=== PATIENT | female | born 1955 | race Caucasian/White ===

== ENCOUNTER → 2016-06-29 | Outpatient (CLI) | payer OTHER ==
[~2016-06-29] MED LIST: ALPR2TAB2 PO; B-12 PO; FLAXSEED OIL PO; HYDR-3144 PO; HYDROCODONE PO; LEVO300T2 PO; ZOLP10TA PO; [UNRECOGNIZED DRUG - OTHER] PO
[2016-06-29 09:41] LABS: HEMOGLOBIN 14.2 g/dL (11.7-16.4)
[2016-06-29 09:48] LABS: BLOOD UREA NITROGEN 11 mg/dL (7-18)
== END | disposition home or self-care (01) ==
LOC: STAR 08:15
PROVIDERS: ATTEND Neurological Surgery
DX: Z01.818 Encounter for other preprocedural examination (principal)
CPT/HCPCS: 36415; 71020; 80048; 81003; 85025; 85610; 85730; 93005

== ENCOUNTER 2016-07-05 08:07 | Inpatient (IN) | payer OTHER ==
[2016-06-29 08:41] VITALS: BP 147/83
[~2016-07-05] VITALS: Ht 172.7 cm; Wt 92.0 kg
[2016-07-05] MEDS ORDERED: BUPIVACAINE/PF 0.5% ONE (08:14)
[2016-07-05] MEDS ORDERED: THROMBIN 5,000 UNIT VIAL TP ONE ×2 (08:14→10:30)
[2016-07-05] MEDS ORDERED: BUPIVACAINE/PF-EPI 0.5% 1:200K ONE (08:14)
[2016-07-05] MEDS ORDERED: VANCOMYCIN 1,000 MG ONE (08:14)
[2016-07-05] MEDS ORDERED: BACITRACIN 50,000 UNIT ONE (08:15)
[2016-07-05] MEDS ORDERED: LACTATED RINGERS 1,000 ML IV SCH (08:37)
[2016-07-05] MEDS ORDERED: LIDOCAINE 1%, 2ML SQ PRN (09:00)
[2016-07-05] MEDS ORDERED: MIDAZOLAM 1 MG/ML, 2ML ONE (09:45)
[2016-07-05] MEDS ORDERED: FENTANYL PF 250 MCG/5ML ONE (09:45)
[2016-07-05] MEDS ORDERED: REMIFENTANIL 2 MG ONE ×2 (09:45→12:07)
[2016-07-05] MEDS ORDERED: PHENYLEPHRINE 10 MG/ML ONE (10:03)
[2016-07-05] MEDS ORDERED: CEFAZOLIN 1,000 MG ONE ×2 (10:03)
[2016-07-05] MEDS ORDERED: GLYCOPYRROLATE 0.2MG/1ML ONE (10:03)
[2016-07-05] MEDS ORDERED: SUCCINYLCHOLINE 20 MG/ML, 10ML ONE (10:03)
[2016-07-05] MEDS ORDERED: METOCLOPRAMIDE 5 MG/ML, 2ML ONE (10:03)
[2016-07-05] MEDS ORDERED: DEXAMETHASONE 4 MG/ML, 1ML ONE (10:03)
[2016-07-05] MEDS ORDERED: ONDANSETRON 2MG/ML, 2ML ONE (10:03)
[2016-07-05] MEDS ORDERED: PROPOFOL 10 MG/ML, 20ML ONE (10:03)
[2016-07-05] MEDS ORDERED: PROPOFOL 10 MG/ML, 50ML ONE (10:03)
[2016-07-05] MEDS ORDERED: VANCOMYCIN 1,000 MG IM ONE (10:30)
[2016-07-05] MEDS ORDERED: BUPIVACAINE/PF 0.5% INFIL ONE (10:30)
[2016-07-05] MEDS ORDERED: BUPIVACAINE/PF-EPI 0.5% 1:200K INFIL ONE (10:30)
[2016-07-05] MEDS ORDERED: BACITRACIN 50,000 UNIT IRRIG ONE (10:30)
[2016-07-05] MEDS ORDERED: MEPERIDINE/PF 25MG/0.5ML IVPush PRN (12:00)
[2016-07-05] MEDS ORDERED: OXYcodone 5 MG/5 ML ORAL.SOL UDC PO PRN (12:00)
[2016-07-05] MEDS ORDERED: LABETALOL 5MG/ML, 20ML IV PRN (12:00)
[2016-07-05] MEDS ORDERED: ONDANSETRON 2MG/ML, 2ML IVPush PRN (12:00)
[2016-07-05] MEDS ORDERED: HYDROmorphone 1 MG/ML, 1ML IV PRN (12:00)
[2016-07-05] MEDS ORDERED: ACETAMINOPHEN 325 MG TABLET PO PRN (12:00)
[2016-07-05] MEDS ORDERED: MIDAZOLAM 1 MG/ML, 2ML IV PRN (12:00)
[2016-07-05] MEDS ORDERED: PROMETHAZINE 25 MG/ML, 1ML IV PRN (12:00)
[2016-07-05] MEDS ORDERED: hydrALAzine 20 MG/ML, 1ML IV PRN (12:00)
[2016-07-05] MEDS ORDERED: HYDROmorphone 2 MG/ML, 1ML ONE (13:32)
[2016-07-05] MEDS: FENTANYL PF 100 MCG/2ML IV PRN ×2 (15:04→15:31)
[2016-07-05] MEDS ORDERED: BISACODYL 10 MG SUPP PR PRN (18:00)
[2016-07-05] MEDS ORDERED: METHOCARBAMOL 750 MG TABLET PO PRN (18:00)
[2016-07-05] MEDS ORDERED: OXYcodone/APAP 10/325MG TABLET PO PRN (18:00)
[2016-07-05] MEDS ORDERED: DIPHENHYDRAMINE 50 MG/ML, 1ML IM PRN (18:00)
[2016-07-05] MEDS ORDERED: HYDROcodone/APAP 5/325 TABLET PO PRN (18:00)
[2016-07-05] MEDS ORDERED: DIPHENHYDRAMINE 50 MG CAPSULE PO PRN (18:00)
[2016-07-05] MEDS ORDERED: PROMETHAZINE 25 MG/ML, 1ML IM PRN (18:00)
[2016-07-05] MEDS ORDERED: ONDANSETRON 2MG/ML, 2ML IV PRN (18:00)
[2016-07-05] MEDS ORDERED: MAGNESIUM HYDROXIDE 8%, 30ML UDC PO PRN (18:00)
[2016-07-05] MEDS ORDERED: MORPHINE SULFATE 4 MG/ML, 1ML ONE (18:23)
[2016-07-05] MEDS: D5%-0.9% NACL+KCL 20MEQ 1,000 ML IV SCH (18:26)
[2016-07-05] MEDS: CEFAZOLIN PMX 1GM/50ML 50 ML IVPB SCH (18:26)
[2016-07-05] MEDS: morphine SULFATE 10 MG/ML, 1ML IV PRN ×2 (18:27→20:29)
[2016-07-05] MEDS ORDERED: ALPRAZOLAM MC SCH (18:30)
[2016-07-05] MEDS ORDERED: DOXYCYCLINE 100MG TABLET PO PRN (18:30)
[2016-07-05] MEDS ORDERED: ZOLPIDEM MC SCH (18:30)
[2016-07-05 19:45] VITALS: BP 146/76
[2016-07-05] MEDS ORDERED: ALPRazolam 1MG TABLET PO PRN (21:00)
[2016-07-05] MEDS: HYDROcodone/APAP 10/325 MG TABLET PO PRN (21:39)
[2016-07-05 23:54] VITALS: BP 135/70
[2016-07-06] MEDS: morphine SULFATE 10 MG/ML, 1ML IV PRN ×4 (00:16→20:53)
[2016-07-06] MEDS: ZOLPIDEM 10MG TABLET PO PRN ×2 (01:06→23:40)
[2016-07-06] MEDS: CEFAZOLIN PMX 1GM/50ML 50 ML IVPB SCH (01:37)
[2016-07-06 02:59] VITALS: BP 118/59
[2016-07-06] MEDS: HYDROcodone/APAP 10/325 MG TABLET PO PRN ×5 (04:08→20:52)
[2016-07-06] MEDS: D5%-0.9% NACL+KCL 20MEQ 1,000 ML IV SCH ×2 (04:09→14:00)
[2016-07-06] MEDS: LEVOTHYROXINE 150 MCG TABLET PO SCH (06:03)
[2016-07-06 07:01] VITALS: BP 115/74
[2016-07-06] MEDS: SENNA/DOCUSATE TABLET PO SCH (07:43)
[2016-07-06] MEDS: RALOXIFENE 60 MG TABLET PO SCH (07:44)
[2016-07-06] MEDS ORDERED: KETOROLAC 30 MG/1 ML IV ONE (08:30)
[2016-07-06 13:07] VITALS: BP 125/68
[2016-07-06] MEDS: KETOROLAC 30 MG/1 ML IV PRN (16:42)
[2016-07-06 19:59] VITALS: BP 118/57
[2016-07-06] MEDS: DOXYCYCLINE 100MG TABLET PO SCH (20:52)
[2016-07-07] MEDS: D5%-0.9% NACL+KCL 20MEQ 1,000 ML IV SCH
[2016-07-07] MEDS: HYDROcodone/APAP 10/325 MG TABLET PO PRN ×3 (01:13→08:57)
[2016-07-07 04:09] VITALS: BP 114/53
[2016-07-07] MEDS: KETOROLAC 30 MG/1 ML IV PRN (05:10)
[2016-07-07] MEDS: LEVOTHYROXINE 150 MCG TABLET PO SCH (05:14)
[2016-07-07 07:30] VITALS: BP 105/68
[2016-07-07] MEDS: RALOXIFENE 60 MG TABLET PO SCH (08:57)
[2016-07-07] MEDS: SENNA/DOCUSATE TABLET PO SCH (08:57)
[2016-07-07] MEDS: DOXYCYCLINE 100MG TABLET PO SCH (08:57)
[2016-07-07] MEDS ORDERED: DOXY100C PO (09:34)
[2016-07-07] MEDS ORDERED: METH750T87 PO (09:36)
[2016-07-07] MEDS ORDERED: HYDR-3307 PO (09:38)
[2016-07-07] MEDS ORDERED: SENN-31 PO (09:39)
== END 2016-07-07 11:00 | disposition home or self-care (01) | DRG 460 ==
LOC: ORIP 08:07 → 4NOR 16:16 → DCLOUNGE 07-07 10:44
PROVIDERS: ADMIT Neurological Surgery; ATTEND Neurological Surgery
PROC: 4A11X4G Monitoring of Peripheral Nervous Electrical Activity, Intraoperative, External Approach (ICD-10-PCS; 2016-07-05)
PROC: 0SG00AJ Fusion of Lumbar Vertebral Joint with Interbody Fusion Device, Posterior Approach, Anterior Column, Open Approach (ICD-10-PCS; 2016-07-05)
PROC: 01NB4ZZ Release Lumbar Nerve, Percutaneous Endoscopic Approach (ICD-10-PCS; 2016-07-05)
PROC: 4A10X4G Monitoring of Central Nervous Electrical Activity, Intraoperative, External Approach (ICD-10-PCS; 2016-07-05)
PROC: 0SG30A1 (ICD-10-PCS; principal; 2016-07-05 10:30)
DX: M43.16 Spondylolisthesis, lumbar region (principal); M48.07 Spinal stenosis, lumbosacral region; M51.36 Other intervertebral disc degeneration, lumbar region; M48.06 Spinal stenosis, lumbar region; F41.9 Anxiety disorder, unspecified; Z90.49 Acquired absence of other specified parts of digestive tract; Z90.710 Acquired absence of both cervix and uterus
CPT/HCPCS: 72100; C1713; C1767; J0690; J1100; J1170; J1885; J2250; J2405; J2704; J3010; J3370; J3490; C1762; J0330; J2270; J2370; J2765; J3480; J7120